=== PATIENT | female | born 1980 | race Caucasian/White ===

== ENCOUNTER 2016-11-25 19:16 | Emergency (ER) | payer SELFPAY ==
[~2016-11-25] VITALS: Ht 165.1 cm; Wt 104.3 kg
[2016-11-25 19:41] LABS: BILIRUBIN,URINE NEGATIVE (NEG); GLUCOSE,URINE NEGATIVE (NEG); NITRITE,URINE NEGATIVE (NEG); PROTEIN,URINE 30 mg/dL (NEG-TRACE); UROBILINOGEN,URINE 0.2 mg/dL (0.2 mg/dL)
[2016-11-25 19:49] LABS: BACTERIA,URINE FEW /HPF (0-FEW); SQUAMOUS EPITHELIAL CELL,UR FEW /LPF; WBC,URINE TNTC /HPF (0-4)
[2016-11-25] MEDS ORDERED: ONDANSETRON PF 4 MG/2 ML VIAL. ONE (20:07)
[2016-11-25] MEDS ORDERED: KETOROLAC 15 MG/ML VIAL. ONE (20:07)
[2016-11-25 20:12] LABS: BASO # 0.1 x10^3/uL (0.0-0.2); BASO % 1 % (0-3); EOS % 1 % (0-3); HEMATOCRIT 40.5 % (36.0-47.0); HEMOGLOBIN 13.7 g/dL (12.0-15.5); LYMPH # 3.3 x10^3/uL (1.0-4.8); LYMPH % 27 % (24-48); MEAN CORPUSCULAR HEMOGLOBIN 29 pg (25-35); MEAN CORPUSCULAR HGB CONC 34 g/dL (31-37); MEAN CORPUSCULAR VOLUME 85 fL (79-100); MONO % 7 % (0-9); NEUT % 64 % (31-73); PLATELET COUNT 288 x10^3/uL (140-400); RED BLOOD COUNT 4.77 x10^6/uL (3.50-5.40); WHITE BLOOD COUNT 12.1 x10^3/uL (4.0-11.0)
[2016-11-25] MEDS ORDERED: IV NORMAL SALINE 1000ML BAG 1,000 ML IV ONE (20:15)
[2016-11-25] MEDS ORDERED: ONDANSETRON PF 4 MG/2 ML VIAL. IV ONE (20:15)
[2016-11-25] MEDS ORDERED: KETOROLAC 15 MG/ML VIAL. IV ONE (20:15)
[2016-11-25 20:23] LABS: CALCIUM 8.9 mg/dL (8.5-10.1); CREATININE 0.8 mg/dL (0.6-1.0); GFR 80.3; POTASSIUM 3.6 mmol/L (3.5-5.1)
[2016-11-25 20:28] LABS: ALBUMIN 3.2 g/dL (3.4-5.0); ALBUMIN/GLOBULIN RATIO 0.7 (1.0-1.7); TOTAL BILIRUBIN 0.2 mg/dL (0.2-1.0); TOTAL PROTEIN 7.8 g/dL (6.4-8.2)
[2016-11-25 20:55] VITALS: BP 131/73
--- NOTE | 2016-11-25 20:57 | RAD ---
CT study of the abdomen and pelvis without contrast Clinical indications: Bilateral flank pain for 2 days. TECHNIQUE: Noncontrast helical CT scanning of the abdomen and pelvis was performed. Without contrast, the sensitivity to detect organ pathology and GI tract pathology is decreased. PQRS compliance Statement One or more of the following individualized dose reduction techniques were utilized for this study: 1. Automated exposure control 2. Adjustment of the mA and/or kV according to patient size 3. Use of iterative reconstruction technique COMPARISON: None available. FINDINGS: The liver and spleen and pancreas are homogeneous in appearance on this noncontrast study. The gallbladder is normal and no extrahepatic biliary ductal dilatation is seen. No adrenal mass is evident. Mild left-sided hydroureter is seen without hydronephrosis. Multiple calcified phleboliths are seen within the left side of the anatomic pelvis. There is a moderate periureteral edema. These findings make it difficult to determine a definite ureteral stone. A ureteral stone may be present. The periureteral edema is consistent with ureteritis. No renal stone is evident on either side. No focal aneurysmal dilatation of the abdominal aorta is seen. No enlarged abdominal or pelvic lymphadenopathy is evident. No uterine mass is evident. Bilateral tubal ligation is seen. No dominant ovarian cyst or mass is seen. The appendix is normal. No obstructive bowel pattern is evident. No free air or free fluid is seen. No lung base consolidation is evident. Bibasilar atelectasis is seen. No osteolytic process is seen. IMPRESSION: Mild left-sided hydroureter down to the level of the distal left ureter. There is moderate periureteral edema consistent with ureteritis. Multiple calcified phleboliths are seen within the left side of the anatomic pelvis. These 2 findings make it difficult to evaluate for a definite ureteral stone although one may be present. Electronically signed by: Simon Sloan MD (11/25/2016 8:54 PM) [facility]
[2016-11-25] MEDS ORDERED: CEPH-264 PO (21:13)
[2016-11-25] MEDS ORDERED: HYDR-971 PO (21:13)
--- NOTE | 2016-11-25 21:13 | PHYS DOC ---
Past Medical History Past Medical History: No Pertinent History Past Surgical History: No Surgical History Alcohol Use: Rarely Drug Use: None Adult General Chief Complaint Chief Complaint: FLANK PAIN HPI HPI Patient is a 36 year old female who presents here today complaining of bilateral flank pain for 2 days. Patient reports she has a history of urinary tract infection the past with similar symptoms. Patient has any fevers shakes chills nausea vomiting diarrhea. Patient denies dysuria frequency or urgency. Patient denies any history of hypertension diabetes liver longer or other kidney problems. Patient has any abdominal surgeries. Patient does smoke and she does not drink or do any drugs. Patient reports she is currently on her menses and is not allergic to any medications. Patient reports she is tolerating by mouth's any difficulty. Review of systems: Constitutional: Denies fever or chills Eyes: Denies change in visual acuity, redness, or eye pain HENT: Denies nasal congestion or sore throat Respiratory: Denies cough or shortness of breath All other review systems negative except as documented in the history of present illness portion. Physical exam: Constitutional: Well developed, well nourished, no acute distress, non-toxic appearance. HENT: Normocephalic, atraumatic, bilateral external ears normal, nose normal. Eyes: PERRLA, EOMI, conjunctiva normal, no discharge. Neck: Normal range of motion, no tenderness, supple, no stridor. Cardiovascular:Heart rate regular rhythm, Lungs & Thorax: Bilateral breath sounds clear to auscultation Abdomen: Bowel sounds normal, soft, no tenderness, no masses, no pulsatile masses. Skin: Warm, dry, no erythema, no rash. Back: Bilateral CVA tenderness. Extremities: No tenderness, no cyanosis, no clubbing, ROM intact, no edema. Neurologic: Alert and oriented X 3, normal motor function, normal sensory function, no focal deficits noted. Psychologic: Affect normal, judgement normal, mood normal. Assessment and plan 36-year-old female who presents to the ER today complaining of bilateral flank pain similar to her prior her UTI symptoms. Patient had a CT scan to rule out nephrolithiasis. Patient's CT scan that showed any evidence of kidney stones at this time although there was some [place] and multiple phleboliths that they could not definitively rule out. Patient's UA however was more consistent with urinary tract infection and given her symptoms and her report that this feels like a prior UTI, her presentation is most consistent with urinary tract infection. Patient was given IV Rocephin in the ED and will be discharged home on Keflex for 10 days. Current Medications Current Medications Current Medications Medications (Trade) Dose Ordered Sig/Jose Start Time Stop Time Status Last Admin Dose Admin Ceftriaxone Sodium 50 ml @ 100 mls/hr 1X ONCE 11/25/16 20:45 11/25/16 21:14 11/25/16 20:39 100 MLS/HR Ketorolac Tromethamine (Toradol) 15 mg STK-MED ONCE 11/25/16 20:07 11/25/16 20:08 DC Ondansetron HCl (Zofran) 4 mg STK-MED ONCE 11/25/16 20:07 11/25/16 20:08 DC Sodium Chloride 1,000 ml @ 1,000 mls/hr 1X ONCE 11/25/16 20:15 11/25/16 21:14 11/25/16 20:10 1,000 MLS/HR Allergies Allergies Allergies Coded Allergies Type Severity Reaction Last Updated Verified No Known Drug Allergies 11/25/16 No Current Patient Data Vital Signs Vital Signs Date Time Temp Pulse Resp B/P (MAP) Pulse Ox O2 Delivery O2 Flow Rate FiO2 11/25/16 20:22 84 18 140/73 (95) 98 Room Air 11/25/16 19:24 98.3 98.3 Lab Values Laboratory Tests Test 11/25/16 19:30 11/25/16 20:00 Urine Collection Type Unknown Urine Color Yellow Urine Clarity Clear Urine pH 7.0 Urine Specific [place] 1.010 Urine Protein 30 mg/dL (NEG-TRACE) Urine Glucose (UA) Negative mg/dL (NEG) Urine Ketones (Stick) Negative mg/dL (NEG) Urine Blood Moderate (NEG) Urine Nitrite Negative (NEG) Urine Bilirubin Negative (NEG) Urine Urobilinogen Dipstick 0.2 mg/dL (0.2 mg/dL) Urine Leukocyte Esterase Large (NEG) Urine RBC 6-10 /HPF (0-2) Urine WBC Tntc /HPF (0-4) Urine Squamous Epithelial Cells Few /LPF Urine Bacteria Few /HPF (0-FEW) Urine Mucus Slight /LPF POC Urine HCG, Qualitative Hcg negative (Negative) White Blood Count 12.1 x10^3/uL (4.0-11.0) H Red Blood Count 4.77 x10^6/uL (3.50-5.40) Hemoglobin 13.7 g/dL (12.0-15.5) Hematocrit 40.5 % (36.0-47.0) Mean Corpuscular Volume 85 fL (79-100) Mean Corpuscular Hemoglobin 29 pg (25-35) Mean Corpuscular Hemoglobin Concent 34 g/dL (31-37) Red Cell Distribution Width 13.0 % (11.5-14.5) Platelet Count 288 x10^3/uL (140-400) Neutrophils (%) (Auto) 64 % (31-73) Lymphocytes (%) (Auto) 27 % (24-48) Monocytes (%) (Auto) 7 % (0-9) Eosinophils (%) (Auto) 1 % (0-3) Basophils (%) (Auto) 1 % (0-3) Neutrophils # (Auto) 7.8 x10^3uL (1.8-7.7) H Lymphocytes # (Auto) 3.3 x10^3/uL (1.0-4.8) Monocytes # (Auto) 0.8 x10^3/uL (0.0-1.1) Eosinophils # (Auto) 0.1 x10^3/uL (0.0-0.7) Basophils # (Auto) 0.1 x10^3/uL (0.0-0.2) Sodium Level 139 mmol/L (136-145) Potassium Level 3.6 mmol/L (3.5-5.1) Chloride Level 101 mmol/L (98-107) Carbon Dioxide Level 29 mmol/L (21-32) Anion Gap 9 (6-14) Blood Urea Nitrogen 8 mg/dL (7-20) Creatinine 0.8 mg/dL (0.6-1.0) Estimated GFR (Cockcroft-Gault) 80.3 BUN/Creatinine Ratio 10 (6-20) Glucose Level 124 mg/dL (70-99) H Calcium Level 8.9 mg/dL (8.5-10.1) Total Bilirubin 0.2 mg/dL (0.2-1.0) Aspartate Amino Transferase (AST) 21 U/L (15-37) Alanine Aminotransferase (ALT) 38 U/L (14-59) Alkaline Phosphatase 88 U/L (46-116) Total Protein 7.8 g/dL (6.4-8.2) Albumin 3.2 g/dL (3.4-5.0) L Albumin/Globulin Ratio 0.7 (1.0-1.7) L Lipase 193 U/L (73-393) Laboratory Tests 11/25/16 20:00 Laboratory Tests 11/25/16 20:00 EKG EKG [] Radiology/Procedures Radiology/Procedures [] Course & Med Decision Making Course & Med Decision Making Pertinent Labs and Imaging studies reviewed. (See chart for details) [] Dragon Disclaimer Dragon Disclaimer This electronic medical record was generated, in whole or in part, using a voice recognition dictation system. Departure Departure Impression: Primary Impression: Urinary tract infection Disposition: 01 HOME, SELF-CARE Condition: IMPROVED Referrals: ELI SOARES MD (PCP) Patient Instructions: Urinary Tract Infection Scripts Hydrocodone/Apap 5-325 (NORCO 5-325 TABLET) 1 Each Tablet 1 TAB PO QID Y for PAIN, #10 TAB Prov: TAMERA VANESSA MD 11/25/16 Cephalexin (KEFLEX) 500 Mg Capsule 500 MG PO QID for 10 Days, CAP Prov: TAMERA VANESSA MD 11/25/16 TAMERA VANESSA MD Nov 25, 2016 21:13
== END 2016-11-25 21:20 | disposition home or self-care (01) ==
LOC: ER 19:16
DX: N39.0 Urinary tract infection, site not specified (principal)
CPT/HCPCS: 36415; 74176; 80053; 81001; 81025; 83690; 85025; 87086; 96365; 96375; 99285; J0690; J1885; J2405; J7030

== ENCOUNTER 2017-07-11 13:34 | Emergency (ER) | payer SELFPAY ==
[2017-07-11 15:02] LABS: ADD MAN DIFF? NO
[2017-07-11 15:05] LABS: BASO # 0.1 x10^3/uL (0.0-0.2); BASO % 1 % (0-3); BILIRUBIN,URINE NEGATIVE (NEG); CLARITY,URINE CLOUDY; COLOR,URINE YELLOW; EOS # 0.1 x10^3/uL (0.0-0.7); EOS % 2 % (0-3); GLUCOSE,URINE NEGATIVE (NEG); HEMATOCRIT 42.4 % (36.0-47.0); HEMOGLOBIN 14.6 g/dL (12.0-15.5); LYMPH # 3.1 x10^3/uL (1.0-4.8); LYMPH % 35 % (24-48); MEAN CORPUSCULAR HEMOGLOBIN 30 pg (25-35); MEAN CORPUSCULAR HGB CONC 34 g/dL (31-37); MEAN CORPUSCULAR VOLUME 86 fL (79-100); MONO # 0.6 x10^3/uL (0.0-1.1); MONO % 7 % (0-9); NEUT # 4.7 x10^3uL (1.8-7.7); NEUT % 55 % (31-73); NITRITE,URINE POSITIVE (NEG); PH,URINE 5.5; PLATELET COUNT 326 x10^3/uL (140-400); PROTEIN,URINE NEGATIVE (NEG-TRACE); RED BLOOD COUNT 4.94 x10^6/uL (3.50-5.40); RED CELL DISTRIBUTION WIDTH 12.9 % (11.5-14.5); UROBILINOGEN,URINE 0.2 mg/dL (0.2 mg/dL); WHITE BLOOD COUNT 8.6 x10^3/uL (4.0-11.0)
[2017-07-11] MEDS: ONDANSETRON PF 4 MG/2 ML VIAL. IV (15:10)
[2017-07-11] MEDS: fentaNYL PF VIAL 100 MCG/2 ML VIAL IV (15:10)
[2017-07-11] MEDS: IV NORMAL SALINE 1000ML BAG 1,000 ML IV (15:11)
[2017-07-11] MEDS: KETOROLAC 30 MG/ML INJ. IV (15:11)
[2017-07-11 15:14] LABS: BACTERIA,URINE MODERATE /HPF (0-FEW); RBC,URINE 0 /HPF (0-2); SQUAMOUS EPITHELIAL CELL,UR MANY /LPF; WBC,URINE TNTC /HPF (0-4)
[2017-07-11 15:19] LABS: ANION GAP 11 (6-14); BLOOD UREA NITROGEN 9 mg/dL (7-20); BUN/CREATININE RATIO 10 (6-20); CALCIUM 8.7 mg/dL (8.5-10.1); CARBON DIOXIDE 27 mmol/L (21-32); CHLORIDE 105 mmol/L (98-107); CREATININE 0.9 mg/dL (0.6-1.0); GFR 70.1; GLUCOSE 109 mg/dL (70-99); POTASSIUM 3.8 mmol/L (3.5-5.1); SODIUM 143 mmol/L (136-145)
[2017-07-11 15:24] LABS: ALBUMIN 3.3 g/dL (3.4-5.0); ALBUMIN/GLOBULIN RATIO 0.7 (1.0-1.7); ALK PHOS 95 U/L (46-116); ALT (SGPT) 25 U/L (14-59); AST (SGOT) 14 U/L (15-37); LIPASE 130 U/L (73-393); TOTAL BILIRUBIN 0.2 mg/dL (0.2-1.0)
[2017-07-11] MEDS: CIPROFLOXACIN HCL 250 MG TABLET. PO (15:56)
== END 2017-07-11 16:00 | disposition home or self-care (01) ==
LOC: ER 13:34
DX: N10 Acute pyelonephritis (principal)
CPT/HCPCS: 36415; 80053; 81001; 83690; 85025; 87086; 96374; 96375; 99284; J1885; J2405; J3010; J7030

== ENCOUNTER 2017-12-27 12:51 | Emergency (ER) | payer SELFPAY ==
[~2017-12-27] VITALS: Ht 165.1 cm; Wt 81.6 kg
[~2017-12-27 12:51] MED LIST: CEPH-264 PO; CIPR500T94 PO; HYDR-971 PO; TRAM50TA PO
[2017-12-27] MEDS ORDERED: SULF1TAB24 PO (13:29)
[2017-12-27 13:44] VITALS: BP 130/80
[2017-12-27] MEDS ORDERED: DIPHTH,PERTUSS(ACELL),TET TOX 0.5 ML DISP.SYRIN. VAX IM ONE (14:00)
[2017-12-27] MEDS ORDERED: SMZ/TMP 800/160MG TABLET. PO ONE (14:30)
--- NOTE | 2017-12-27 16:25 | PHYS DOC ---
Past Medical History Past Medical History: No Pertinent History Past Surgical History: No Surgical History Alcohol Use: None Drug Use: None Adult General Chief Complaint Chief Complaint: ABSCESS HPI HPI Patient is a 37 year old female who presents with abscess in the left axilla. Patient presents to the ER complaining of 2 day history of pain and swelling and erythema in the left axilla. She does have prior history of abscess in the same location. This episode, has come up very quickly. She does state it has been draining the entire time. She complains of erythema that has been expanding out from the abscess itself. No fever or chills. The patient does not have diabetes. Review of Systems Review of Systems Constitutional: Denies fever or chills HENT: Denies nasal congestion Respiratory: Denies cough or shortness of breath Cardiovascular: No additional information not addressed in HPI GI: Denies abdominal pain Musculoskeletal: Denies back pain Integument: Denies rash Neurologic: Denies headace All other systems were reviewed and found to be within normal limits, except as documented in this note. Current Medications Current Medications Current Medications Medications (Trade) Dose Ordered Sig/Jose Start Time Stop Time Status Last Admin Dose Admin Diphtheria/ Tetanus/Acell Pertussis (Boostrix) 0.5 ml ONCE ONCE 12/27/17 14:00 12/27/17 14:01 DC 12/27/17 13:42 0.5 ML Trimethoprim/ Sulfamethoxazole (Bactrim Ds) 1 tab 1X ONCE 12/27/17 14:30 12/27/17 14:30 DC 12/27/17 14:06 1 TAB Allergies Allergies Allergies Coded Allergies Type Severity Reaction Last Updated Verified No Known Drug Allergies 11/25/16 No Physical Exam Physical Exam Constitutional: Well developed, well nourished, no acute distress, non-toxic appearance HENT: Normocephalic, atraumatic, bilateral external ears normal, oropharynx moist Eyes: PERRLA, EOMI Neck: Normal range of motion Cardiovascular:Heart rate regular rhythm, no murmur Lungs & Thorax: Bilateral breath sounds clear to auscultation Skin: Area of erythema, pain, warmth to touch in the left axilla. There is a 1 cm central pustule that is actively draining. No palpable area of fluctuance, primarily indurated Neurologic: Alert and oriented X 3 Psychologic: Affect normal Current Patient Data Vital Signs Vital Signs Date Time Temp Pulse Resp B/P (MAP) Pulse Ox O2 Delivery O2 Flow Rate FiO2 12/27/17 13:44 98.3 91 16 130/80 (97) 98 Room Air 98.3 EKG EKG [] Radiology/Procedures Radiology/Procedures [] Course & Med Decision Making Course & Med Decision Making Pertinent Labs and Imaging studies reviewed. (See chart for details) Maykel was evaluated in the emergency department for a possible abscess in the left axilla. Per the patient's history of present illness, it had been draining over the last 2 days. On physical exam today, there was no fluctuant area which would warrant incision and drainage. There was however some local cellulitis. The patient is placed on Bactrim. She is offered medications for pain but she declines the need. She is advised to come back in 48 hours to have the wound reevaluated if the erythema is expanding beyond the borders which were marked in the ER today. She understands the plan of care and all of her questions are answered prior to discharge home. Dragon Disclaimer Dragon Disclaimer This electronic medical record was generated, in whole or in part, using a voice recognition dictation system. Departure Departure Impression: Primary Impression: Abscess of axilla, left Additional Impression: Cellulitis of axilla, left Disposition: 01 HOME, SELF-CARE Condition: GOOD Referrals: ELI SOARES MD (PCP) Patient Instructions: Abscess Scripts Sulfamethoxazole/Trimethoprim (BACTRIM DS TABLET) 1 Each Tablet 1 TAB PO BID, #20 TAB Prov: ENRICO PUGA DO 12/27/17 Problem Qualifiers ENRICO PUGA DO Dec 27, 2017 16:25
== END 2017-12-27 14:07 | disposition home or self-care (01) ==
LOC: ER 12:51
DX: L02.412 Cutaneous abscess of left axilla (principal); L03.112 Cellulitis of left axilla
CPT/HCPCS: 90471; 90715; 99283

== ENCOUNTER 2018-10-12 09:32 | Emergency (ER) | payer SELFPAY ==
[~2018-10-12] VITALS: Ht 167.6 cm; Wt 83.9 kg
[~2018-10-12 09:32] MED LIST changes: +HYDR-3164 PO; -HYDR-971 PO; +SULF1TAB24 PO
[2018-10-12 09:36] VITALS: BP 140/79
[2018-10-12] MEDS ORDERED: IBUPROFEN 400 MG TABLET. PO ONE (10:00)
[2018-10-12 10:17] LABS: BILIRUBIN,URINE NEGATIVE (NEG); CLARITY,URINE CLOUDY; COLOR,URINE YELLOW; NITRITE,URINE NEGATIVE (NEG); PROTEIN,URINE NEGATIVE (NEG-TRACE); UROBILINOGEN,URINE 0.2 mg/dL (0.2 mg/dL)
--- NOTE | 2018-10-12 10:24 | PHYS DOC ---
Past Medical History Past Medical History: No Pertinent History Past Surgical History: No Surgical History Additional Information: 0.5 PPD Alcohol Use: None Drug Use: None Adult General Chief Complaint Chief Complaint: PAIN ON URINATION [facility] Patient is a 38 year old female who presents with complaining of problems with urination. Patient states she has had urinary frequency and dysuria for the last 3 days with constant low back pain as a sharp pain without radiation. Denies urinary and bowel incontinence, abdominal pain, fever and chills, nausea and vomiting, , vaginal bleeding or discharge, history of back pain. Patient rated her pain as 10 over 10 and states she took aspirin without improvement of her pain. Review of Systems Review of Systems Constitutional: Denies fever or chills [] Eyes: Denies change in visual acuity, redness, or eye pain [] HENT: Denies nasal congestion or sore throat [] Respiratory: Denies cough or shortness of breath [] Cardiovascular: No additional information not addressed in HPI [] GI: Denies abdominal pain, nausea, vomiting, bloody stools or diarrhea [] : Denies hematuria, reports dysuria [] Musculoskeletal: Reports back pain Integument: Denies rash or skin lesions [] Neurologic: Denies headache, focal weakness or sensory changes [] Endocrine: Denies polyuria or polydipsia [] All other systems were reviewed and found to be within normal limits, except as documented in this note. Current Medications Current Medications Current Medications Medications (Trade) Dose Ordered Sig/Jose Start Time Stop Time Status Last Admin Dose Admin Ibuprofen (Motrin) 800 mg 1X ONCE 10/12/18 10:00 10/12/18 10:01 DC 10/12/18 10:04 800 MG Allergies Allergies Allergies Coded Allergies Type Severity Reaction Last Updated Verified No Known Drug Allergies 11/25/16 No Physical Exam Physical Exam Constitutional: Well developed, well nourished, mild distress, non-toxic appearance. [] HENT: Normocephalic, atraumatic. Eyes: PERRLA, EOMI, conjunctiva normal, no discharge. [] Neck: Normal range of motion, no tenderness, supple, no stridor. [] Cardiovascular:Heart rate regular rhythm, no murmur [] Lungs & Thorax: Bilateral breath sounds clear to auscultation [] Abdomen: Bowel sounds normal, soft, no tenderness, no masses, no pulsatile jose s. [] Skin: Warm, dry, no erythema, no rash. [] Back: No tenderness, no CVA tenderness. [] Extremities: No tenderness, no cyanosis, no clubbing, ROM intact, no edema. [] Neurologic: Alert and oriented X 3, no focal deficits noted. [] Psychologic: Affect normal, judgement normal, mood normal. [] Current Patient Data Vital Signs Vital Signs Date Time Temp Pulse Resp B/P (MAP) Pulse Ox O2 Delivery O2 Flow Rate FiO2 10/12/18 09:36 97.9 100 19 140/79 (99) 98 Room Air 97.9 Lab Values Laboratory Tests Test 10/12/18 09:39 Urine Collection Type Void Urine Color Yellow Urine Clarity Cloudy Urine pH 6.0 Urine Specific [place] 1.025 Urine Protein Negative mg/dL (NEG-TRACE) Urine Glucose (UA) Negative mg/dL (NEG) Urine Ketones (Stick) Negative mg/dL (NEG) Urine Blood Negative (NEG) Urine Nitrite Negative (NEG) Urine Bilirubin Negative (NEG) Urine Urobilinogen Dipstick 0.2 mg/dL (0.2 mg/dL) Urine Leukocyte Esterase Small (NEG) Urine RBC 0 /HPF (0-2) Urine WBC 5-10 /HPF (0-4) Urine Squamous Epithelial Cells Many /LPF Urine Bacteria Few /HPF (0-FEW) Urine Mucus Slight /LPF EKG EKG [] Radiology/Procedures Radiology/Procedures [] Course & Med Decision Making Course & Med Decision Making Pertinent Labs reviewed. (See chart for details) discharge: I've spoken with the patient and/or caregivers. I've explained the patient's condition, diagnosis and treatment plan based on information available to me at this time. I've answered the patient's and/or caregivers questions and addressed any concerns. The patient and/or caregivers have a good understanding the patient's diagnosis, condition and treatment plan as can be expected at this point. Vital signs have been stabilized. The patient's condition is stable for discharge from the emergency department. The patient will pursue further outpatient evaluation with her primary care provider or other designated consulting physician as outlined in the discharge instructions. Patient and/or caregivers are agreeable to this plan of care and follow-up instructions have been explained in detail. The patient and/or caregivers have received these instructions in written format and expressed understanding of these discharge instructions. The patient and her caregivers are aware that if any significant change in condition or worsening of symptoms should prompt him to immediately return to this of the closest emergency department. If an emergent department is not readily available I would encourage him to call 911. Chun Disclaimer Dragon Disclaimer This electronic medical record was generated, in whole or in part, using a voice recognition dictation system. Departure Departure Impression: Primary Impression: Urinary tract infection Disposition: HOME, SELF-CARE (at 1113) Condition: STABLE Referrals: ELI SOARES MD (PCP) Patient Instructions: Urinary Tract Infection Additional Instructions: Drink plenty of liquids Follow-up with your primary care physician in 3-5 days Return to ER if not getting better Scripts Tramadol Hcl (ULTRAM) 50 Mg Tablet 50 MG PO Q6HRS PRN for PAIN, #14 TAB 0 Refills Prov: PASQUALE CARREON MD 10/12/18 Cephalexin (KEFLEX) 500 Mg Capsule 2 CAP PO Q12HR, #40 CAP Prov: PASQUALE CARREON MD 10/12/18 Problem Qualifiers Primary Impression: Urinary tract infection Urinary tract infection type: site unspecified Hematuria presence: without hematuria Qualified Codes: N39.0 - Urinary tract infection, site not specified PASQUALE CARREON MD Oct 12, 2018 10:24
[2018-10-12 10:51] LABS: SQUAMOUS EPITHELIAL CELL,UR MANY /LPF
[2018-10-12 10:54] LABS: BACTERIA,URINE FEW /HPF (0-FEW); RBC,URINE 0 /HPF (0-2)
[2018-10-12] MEDS ORDERED: TRAM-48 PO (11:15)
[2018-10-12] MEDS ORDERED: CEPH-264 PO (11:15)
== END 2018-10-12 11:19 | disposition home or self-care (01) ==
LOC: ER 09:32
DX: N39.0 Urinary tract infection, site not specified (principal); F17.200 Nicotine dependence, unspecified, uncomplicated
CPT/HCPCS: 81001; 87086; 99284